=== PATIENT | female | born 1980 | race Caucasian/White ===

== ENCOUNTER 2024-08-01 22:09 | Emergency (ER) | payer SELFPAY ==
[2024-08-01] MEDS ORDERED: Lidocaine Viscous Sol 2% 15 ml UD Cup ONE (22:51)
[2024-08-01] MEDS ORDERED: Mag-Al 1200 mg/1200 mg/30 ML UDCUP ONE (22:52)
== END 2024-08-01 23:20 | disposition home or self-care (01) ==
LOC: MADERS 22:09
DX: K21.00 Gastro-esophageal reflux disease with esophagitis, without bleeding (principal)
CPT/HCPCS: 93005; 99284